=== PATIENT | female | born 1990 | race Caucasian/White ===

== ENCOUNTER 2017-08-08 14:06 | Emergency (ER) | payer SELFPAY ==
[~2017-08-08] VITALS: Ht 160 cm; Wt 110.0 kg
[~2017-08-08 14:06] MED LIST: POTA-243 PO
[2017-08-08] MEDS ORDERED: ADENOSINE IV SOLN 3 MG/ML 2 ML VIAL ONE (14:26)
[2017-08-08] MEDS ORDERED: ADENOSINE IV SOLN 3 MG/ML 2 ML VIAL IV PUSH ONE ×2 (14:30→14:45)
[2017-08-08 14:35] VITALS: BP 140/85; PULSE 230; RESP 15; TEMP 98.8; O2SAT 97
[2017-08-08 14:40] VITALS: BP 136/86; PULSE 114; RESP 20; O2SAT 96
--- NOTE | 2017-08-08 14:47 | PD ---
HPI Chief Complaint: Cardiac Complaint Time Seen by Provider: 14:27 Travel History International Travel<30 days: No Contact w/Intl Traveler<30days: No History of Present Illness HPI 27 y/o female presents with palpitation feeling that started this morning. She denies other concurrent complaints. She states she has had this once before. She denies following with a indoor sports centre manager. She denies trying vagal maneuvers at home and does not know about those. Quality is fast feeling. Severity is in the 200s. Duration is couple of hours. She denies specific modifying factors. PFSH Past Medical History Heart Rhythm Problems: Yes (PT STATES TACHYCARDIA IN THE PAST) Diminished Hearing: No Past Surgical History Surgical History: No Previous Surgery Social History Alcohol Use: Yes (OCCASIONAL) Tobacco Use: No Substance Use: No Allergies-Medications (Allergen,Severity, Reaction): Coded Allergies: No Known Allergies (Unverified Adverse Reaction, Unknown, 08/08/17) Reported Meds & Prescriptions Reported Meds & Active Scripts Active Diltiazem CD 24 HR 120 Mg Caper 120 Mg PO DAILY Review of Systems Except as stated in HPI: all other systems reviewed are Neg Physical Exam Narrative GENERAL: 27-year-old female who appears anxious with tachycardia SKIN: Focused skin assessment warm/dry. HEAD: Atraumatic. Normocephalic. EYES: Pupils equal and round. No scleral icterus. No injection or drainage. ENT: No nasal bleeding or discharge. Mucous membranes pink and moist. NECK: Trachea midline. CARDIOVASCULAR: Tachycardic rate in the 200s. No murmur appreciated. RESPIRATORY: No accessory muscle use. Clear to auscultation. Breath sounds equal bilaterally. GASTROINTESTINAL: Abdomen soft, non-tender, nondistended. MUSCULOSKELETAL: No obvious deformities. No clubbing. No cyanosis. No edema. NEUROLOGICAL: Awake and alert. No obvious cranial nerve deficits. Motor grossly within normal limits. Normal speech. PSYCHIATRIC: Appropriate mood and affect; insight and judgment normal. Data Data Last Documented VS Vital Signs Date Time Temp Pulse Resp B/P (MAP) Pulse Ox O2 Delivery O2 Flow Rate FiO2 08/08/17 14:40 114 20 136/86 (103) 96 Nasal Cannula 2.00 08/08/17 14:35 98.8 Orders Orders Adenosine Inj (Adenocard Inj) (08/08/17 14:30) Adenosine Inj (Adenocard Inj) (08/08/17 14:26) Magnesium (Mg) (08/08/17 14:27) Phosphorus (Po4) (08/08/17 14:27) Complete Blood Count With Diff (08/08/17 14:27) Basic Metabolic Panel (Bmp) (08/08/17 14:27) Electrocardiogram (08/08/17 ) Iv Access Insert/Monitor (08/08/17 14:27) Ecg Monitoring (08/08/17 14:27) Oximetry (08/08/17 14:27) Electrocardiogram (08/08/17 ) Adenosine Inj (Adenocard Inj) (08/08/17 14:45) Ed Discharge Order (08/08/17 16:33) Labs Laboratory Tests Test 08/08/17 14:30 White Blood Count 14.2 TH/MM3 Red Blood Count 4.98 MIL/MM3 Hemoglobin 13.5 GM/DL Hematocrit 40.4 % Mean Corpuscular Volume 81.2 FL Mean Corpuscular Hemoglobin 27.1 PG Mean Corpuscular Hemoglobin Concent 33.4 % Red Cell Distribution Width 13.3 % Platelet Count 418 TH/MM3 Mean Platelet Volume 9.3 FL Neutrophils (%) (Auto) 67.1 % Lymphocytes (%) (Auto) 24.9 % Monocytes (%) (Auto) 4.4 % Eosinophils (%) (Auto) 3.1 % Basophils (%) (Auto) 0.5 % Neutrophils # (Auto) 9.5 TH/MM3 Lymphocytes # (Auto) 3.5 TH/MM3 Monocytes # (Auto) 0.6 TH/MM3 Eosinophils # (Auto) 0.4 TH/MM3 Basophils # (Auto) 0.1 TH/MM3 CBC Comment DIFF FINAL Differential Comment Blood Urea Nitrogen 10 MG/DL Creatinine 0.61 MG/DL Random Glucose 81 MG/DL Calcium Level 9.0 MG/DL Phosphorus Level 3.3 MG/DL Magnesium Level 2.1 MG/DL Sodium Level 140 MEQ/L Potassium Level 3.5 MEQ/L Chloride Level 106 MEQ/L Carbon Dioxide Level 26.1 MEQ/L Anion Gap 8 MEQ/L Estimat Glomerular Filtration Rate 120 ML/MIN MDM Medical Decision Making Medical Screen Exam Complete: Yes Emergency Medical Condition: Yes Medical Record Reviewed: Yes (Patient with one prior visit with similar) Interpretation(s) EKG with SVT in the 230s Repeat EKG is sinus tachycardia at 115 CBC & BMP Diagram 08/08/17 14:30 Calcium Level 9.0, Phosphorus Level 3.3, Magnesium Level 2.1 Differential Diagnosis SVT, A. fib, Electrolyte abnormality Narrative Course We will check blood work. Attempted vagal maneuvers and modified Valsalva without reduction. Given 1 dose of 6 mg of adenosine without change. On second dose patient went from heart rate of 230s-115. EKG on repeat shows sinus tachycardia. Labs without emergent findings. Will discuss with cardiology Patient denies any new complaints and states that they are feeling better. Patient happy with care, all questions answered. Patient knows that follow up is incumbent on them and to return to the emergency room immediately if new or worsening symptoms develop. Patient given strict return precautions, vitals reviewed and are normal, agrees to further workup as an outpatient. Critical Care Narrative Aggregate critical care time was 35 minutes. Time to perform other separately billable procedures was not included in the critical care time. My time did not include minutes spent treating any other patients simultaneously or on activities that did not directly contribute to the patient's treatment. The services I provided to this patient were to treat and/or prevent clinically significant deterioration that could result in: Arrhythmia, I provided critical care services requiring my management, as noted below: Chart data review, documentation time, medication orders and management, vital sign assessments/reviewing monitor data, ordering and reviewing lab tests, ordering and interpreting/reviewing x-rays and diagnostic studies, care of the patient and discussion of the patient with the admitting physicians. Physician Communication Physician Communication dr botello states to send patient home on diltiazem 120 mg long-acting once a day and follow up outpatient with cardiology Diagnosis Primary Impression: SVT (supraventricular tachycardia) Patient Instructions: General Instructions Additional Instructions: return as needed, avoid caffeine, set up follow up with cardiology this week, keep a heart rate and blood pressure log Med/Other Pt SpecificInfo: Prescription(s) given Scripts Diltiazem CD 24 HR (Diltiazem CD 24 HR) 120 Mg Caper 120 MG PO DAILY, #14 CAP 0 Refills Prov: Mariah Og MD 08/08/17 Disposition: 01 DISCHARGE HOME Condition: Stable Mariah Og MD Aug 08, 2017 14:47
[2017-08-08 15:00] VITALS: BP 130/77; PULSE 108; RESP 18; O2SAT 100
[2017-08-08 15:40] LABS: AUTOMATED NEUTROPHIL # 9.5 TH/MM3 (1.8-7.7); BASOPHIL # 0.1 TH/MM3 (0-0.2); BASOPHIL % 0.5 % (0.0-2.0); EOSINOPHIL # 0.4 TH/MM3 (0-0.4); EOSINOPHIL % 3.1 % (0.0-4.0); HEMATOCRIT 40.4 % (35.0-46.0); HEMOGLOBIN 13.5 GM/DL (11.6-15.3); LYMPH % 24.9 % (9.0-44.0); LYMPHOCYTE # 3.5 TH/MM3 (1.0-4.8); MEAN CELL VOLUME 81.2 FL (80.0-100.0); MEAN CORPUSCULAR HEMOGLOBIN 27.1 PG (27.0-34.0); MEAN CORPUSCULAR HGB CONC 33.4 % (32.0-36.0); MEAN PLATELET VOLUME 9.3 FL (7.0-11.0); MONO % 4.4 % (0.0-8.0); MONOCYTE # 0.6 TH/MM3 (0-0.9); NEUT % 67.1 % (16.0-70.0); PLATELET COUNT 418 TH/MM3 (150-450); RED BLOOD COUNT 4.98 MIL/MM3 (4.00-5.30); RED CELL DISTRIBUTION WIDTH 13.3 % (11.6-17.2); WHITE BLOOD COUNT 14.2 TH/MM3 (4.0-11.0)
[2017-08-08 16:00] VITALS: BP 135/74; PULSE 106; RESP 20; O2SAT 10; O2SAT 100
[2017-08-08 16:10] LABS: BICARBONATE 26.1 MEQ/L (21.0-32.0); CREATININE 0.61 MG/DL (0.50-1.00); MAGNESIUM 2.1 MG/DL (1.5-2.5); PHOSPHORUS 3.3 MG/DL (2.5-4.9)
[2017-08-08] MEDS ORDERED: DILT120C50 PO (16:31)
[2017-08-08 17:00] VITALS: BP 135/73; PULSE 111; RESP 18; O2SAT 98
--- NOTE | 2017-08-09 23:00 | EKG ---
Date Performed: 08/08/2017 Time Performed: 14:41:43 PTAGE: 27 years EKG: SINUS TACHYCARDIA POSSIBLE LEFT VENTRICULAR HYPERTROPHY INFERIOR MYOCARDIAL INFARCTION ABNO RMAL ECG Compared to PREVIOUS TRACING , rate slower DOCTOR: Cori Thompson Interpretating Date/Time 08/09/2017 22:59:50
--- NOTE | 2017-08-09 23:06 | EKG ---
Date Performed: 08/08/2017 Time Performed: 14:14:27 PTAGE: 27 years EKG: SUPRAVENTRICULAR TACHYCARDIA NONSPECIFIC ST & T-WAVE ABNORMALITY ABNORMAL ECG PREVIOUS TRACING : 01/10/2015 01.41 Compared to previous tracing, fast SVT present DOCTOR: Cori Thompson Interpretating Date/Time 08/09/2017 23:04:26
== END 2017-08-08 17:32 | disposition home or self-care (01) ==
LOC: NEPC 14:06
DX: I47.1 Supraventricular tachycardia (principal)
CPT/HCPCS: 80048; 83735; 84100; 85025; 93005; 96374; 99291; J0153